=== PATIENT | female | born 2000 | race Two or more races ===

== ENCOUNTER 2023-10-13 01:01 | Outpatient (CLI) | payer MEDICAID ==
[2023-10-13] VITALS (21 sets, daily range): BP systolic 86–120; BP diastolic 53–85; PULSE 64–96
[~2023-10-13 01:01] MED LIST: ALBU18HF2 IH; ALBU8HFA PO; FLO44IN IH; LEVA15HF4 IH; PRED15SO71 PO; PRED50TA PO
== END 2023-10-13 23:59 | disposition home or self-care (01) ==
LOC: CARD DIAG 01:01
PROVIDERS: ATTEND Nurse Practitioner Family
DX: I95.1 Orthostatic hypotension (principal)
CPT/HCPCS: 71045; 93660